=== PATIENT | male | born 1980 | race Caucasian/White ===

== ENCOUNTER 2016-05-30 11:48 | Emergency (ER) | payer MEDICARE, OTHER ==
[~2016-05-30] VITALS: Ht 167.6 cm; Wt 83.1 kg
[~2016-05-30 11:48] MED LIST: ALBU1.25 NEB; DEPA500T3 PO; TIMO5SOL EACH EYE
[2016-05-30 11:54] VITALS: BP 143/111; PULSE 95; RESP 20; TEMP 98.4; O2SAT 96
[2016-05-30 12:12] VITALS: BP 156/104; PULSE 89; RESP 18; O2SAT 96
[2016-05-30] MEDS ORDERED: IBUPROFEN 600 MG TAB PO ONE (12:15)
[2016-05-30] MEDS ORDERED: FLUT1INH INH (12:16)
[2016-05-30 12:28] LABS: AUTOMATED NEUTROPHIL # 5.5 TH/MM3 (1.8-7.7); BASOPHIL # 0.1 TH/MM3 (0-0.2); BASOPHIL % 0.9 % (0.0-2.0); EOSINOPHIL # 0.2 TH/MM3 (0-0.4); EOSINOPHIL % 1.6 % (0.0-4.0); HEMATOCRIT 48.1 % (39.0-51.0); HEMO FLAGS DIFF FINAL; LYMPH % 36.8 % (9.0-44.0); LYMPHOCYTE # 3.7 TH/MM3 (1.0-4.8); MEAN CELL VOLUME 87.4 FL (80.0-100.0); MEAN CORPUSCULAR HEMOGLOBIN 29.4 PG (27.0-34.0); MEAN CORPUSCULAR HGB CONC 33.6 % (32.0-36.0); MONO % 5.4 % (0.0-8.0); NEUT % 55.3 % (16.0-70.0); PLATELET COUNT 207 TH/MM3 (150-450); RED CELL DISTRIBUTION WIDTH 12.7 % (11.6-17.2)
[2016-05-30 12:41] LABS: CHLORIDE 104 MEQ/L (98-107); POTASSIUM 3.6 MEQ/L (3.5-5.1); SODIUM (NA) 144 MEQ/L (136-145)
[2016-05-30 12:45] LABS: ANION GAP 11 MEQ/L (5-15); BICARBONATE 28.8 MEQ/L (21.0-32.0)
[2016-05-30 12:46] LABS: BLOOD UREA NITROGEN 12 MG/DL (7-18)
--- NOTE | 2016-05-30 12:47 | RADHPO ---
EXAM DATE/TIME: 05/30/2016 12:29 [facility] COMPARISON: CHEST SINGLE AP, February 26, 2016, 16:44. INDICATIONS : Chest pain. MEDICAL HISTORY : Asthma. SURGICAL HISTORY : Hernia repair. ENCOUNTER: Initial ACUITY: 1 day PAIN SCORE: 5/10 LOCATION: chest FINDINGS: A single view of the chest demonstrates the lungs to be symmetrically aerated without evidence of mas s, infiltrate or effusion. The cardiomediastinal contours are unremarkable. Osseous structures are intact. CONCLUSION: No acute disease. Gavin Arguelles MD on May 30, 2016 at 12:45 Board Certified Radiologist. This report was verified electronically.
[2016-05-30 12:49] LABS: GLOMERULAR FILTRATION RATE 76 ML/MIN (>89)
--- NOTE | 2016-05-30 12:59 | PD ---
HPI Chief Complaint: Chest Pain Time Seen by Provider: 12:13 Travel History International Travel<30 days: No Contact w/Intl Traveler<30days: No Traveled to known affect area: No History of Present Illness HPI This 35-year-old male is complaining of right-sided chest pain. The pain is having is sharp and aggravated by breathing. He has had a cold for a couple of days. He is visually impaired and developmentally delayed. He does not smoke cigarettes. He has not been complaining of shortness of breath. He is able to point with one finger at the site of the pain. 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) Psychiatric: No Respiratory: Yes (ASTHMA) Immunizations Current: Yes Seizures: Yes (TAKES DEPAKOTE) Thyroid Disease: No Influenza Vaccination: Yes Past Surgical History Abdominal Surgery: Yes (HERNIA) Eye Surgery: Yes ("LESS THAN ONE YEAR OLD AND ONE YEAR OLD") Other Surgery: Yes (HERNIA REPAIR) Social History Alcohol Use: No Tobacco Use: No Substance Use: No Allergies-Medications (Allergen,Severity, Reaction): Coded Allergies: No Known Allergies (Verified , 02/26/16) Reported Meds & Prescriptions Reported Meds & Active Scripts Active Reported Breo Ellipta Inh (Fluticasone/Vilanterol) 100-25 Mcg/Act Inh 1 Puff INH DAILY Use daily at the same time. Depakote ER (Divalproex Sodium) 500 Mg Pablo 500 Mg PO TID Review of Systems General / Constitutional: No: Fever, Chills Eyes: No: Diploplia HENT: Positive: Sore Throat, Rhinitis Cardiovascular: Positive: Chest Pain or Discomfort Respiratory: Positive: Cough, No: Shortness of Breath, Wheezing Gastrointestinal: No: Vomiting, Diarrhea Musculoskeletal: No: Myalgias, Arthralgias Skin: No Rash, No Itching Neurologic: No: Weakness, Dizziness Hematologic/Lymphatic: No: Easy Bruising Physical Exam Narrative GENERAL: Well-developed male SKIN: Warm and dry. HEAD: Atraumatic. Normocephalic. EYES: There are bilateral corneal opacities ENT: No nasal bleeding or discharge. Mucous membranes pink and moist. NECK: Trachea midline. No JVD. CARDIOVASCULAR: Regular rate and rhythm. No murmur appreciated. RESPIRATORY: No accessory muscle use. Clear to auscultation. Breath sounds equal bilaterally. GASTROINTESTINAL: Abdomen soft, non-tender, nondistended. Hepatic and splenic margins not palpable. MUSCULOSKELETAL: No obvious deformities. No clubbing. No cyanosis. No edema. NEUROLOGICAL: Awake and alert. No obvious cranial nerve deficits. Motor grossly within normal limits. Normal speech. PSYCHIATRIC: Appropriate mood and affect; insight and judgment normal. Data Data Last Documented VS Vital Signs Date Time Temp Pulse Resp B/P Pulse Ox O2 Delivery O2 Flow Rate FiO2 05/30/16 12:12 96 Room Air 05/30/16 12:12 89 18 156/104 05/30/16 11:54 98.4 Orders Electrocardiogram (05/30/16 12:13) Complete Blood Count With Diff (05/30/16 12:13) Basic Metabolic Panel (Bmp) (05/30/16 12:13) Troponin I (05/30/16 12:13) Influenzae A/B Antigen (05/30/16 12:13) Chest, Single Ap (05/30/16 12:13) Ibuprofen (Motrin) (05/30/16 12:15) Labs Laboratory Tests Test 05/30/16 12:20 White Blood Count 10.0 TH/MM3 Red Blood Count 5.50 MIL/MM3 Hemoglobin 16.2 GM/DL Hematocrit 48.1 % Mean Corpuscular Volume 87.4 FL Mean Corpuscular Hemoglobin 29.4 PG Mean Corpuscular Hemoglobin 33.6 % Concent Red Cell Distribution Width 12.7 % Platelet Count 207 TH/MM3 Mean Platelet Volume 7.8 FL Neutrophils (%) (Auto) 55.3 % Lymphocytes (%) (Auto) 36.8 % Monocytes (%) (Auto) 5.4 % Eosinophils (%) (Auto) 1.6 % Basophils (%) (Auto) 0.9 % Neutrophils # (Auto) 5.5 TH/MM3 Lymphocytes # (Auto) 3.7 TH/MM3 Monocytes # (Auto) 0.5 TH/MM3 Eosinophils # (Auto) 0.2 TH/MM3 Basophils # (Auto) 0.1 TH/MM3 CBC Comment DIFF FINAL Differential Comment Sodium Level 144 MEQ/L Potassium Level 3.6 MEQ/L Chloride Level 104 MEQ/L Carbon Dioxide Level 28.8 MEQ/L Anion Gap 11 MEQ/L Blood Urea Nitrogen 12 MG/DL Creatinine 1.10 MG/DL Estimat Glomerular Filtration 76 ML/MIN Rate Random Glucose 113 MG/DL Calcium Level 9.7 MG/DL Troponin I LESS THAN 0.02 NG/ML MDM Medical Decision Making Medical Screen Exam Complete: Yes Emergency Medical Condition: Yes Medical Record Reviewed: Yes Differential Diagnosis Differential includes pleurisy, bronchitis, URI Narrative Course EKG shows normal sinus rhythm. Troponin is normal. Is not suggestive of cardiac chest pain in that it is pleuritic in located on the right side of the chest. He is having a upper respiratory infection and I believe is secondary to his upper respiratory infection. His flu test is negative Diagnosis Primary Impression: Upper respiratory infection Qualified Code: J06.9 - Upper respiratory tract infection, unspecified type Additional Instructions: Take Tylenol or Motrin for pain Disposition: 01 DISCHARGE HOME Condition: Stable Hermelindo Penny MD May 30, 2016 12:59
[2016-05-30 13:29] VITALS: BP 138/74
--- NOTE | 2016-05-31 22:38 | EKG ---
Date Performed: 05/30/2016 Time Performed: 12:00:18 PTAGE: 35 years EKG: Sinus rhythm Normal ECG PREVIOUS TRACING : 02/26/2016 16.26 Compared to prior tracing no significant change DOCTOR: Rg Castro Interpretating Date/Time 05/31/2016 22:37:07
== END 2016-05-30 13:30 | disposition home or self-care (01) ==
LOC: PHED 11:48
DX: J06.9 Acute upper respiratory infection, unspecified (principal); R07.89 Other chest pain; H54.7 Unspecified visual loss; Z87.09 Personal history of other diseases of the respiratory system; Z86.69 Personal history of other diseases of the nervous system and sense organs
CPT/HCPCS: 71010; 80048; 84484; 85025; 87804; 93005

== ENCOUNTER 2017-05-26 11:28 | Emergency (ER) | payer MEDICARE, OTHER ==
[~2017-05-26] VITALS: Ht 170.2 cm; Wt 90.0 kg
[~2017-05-26 11:28] MED LIST changes: -ALBU1.25 NEB; +FLUT1INH INH; -TIMO5SOL EACH EYE
[2017-05-26 11:45] VITALS: BP 137/96; PULSE 88; RESP 16; TEMP 98.7; O2SAT 95
[2017-05-26] MEDS ORDERED: DEPA500T3 PO (12:01)
[2017-05-26] MEDS ORDERED: TIMO0.5S30 EACH EYE (12:01)
--- NOTE | 2017-05-26 13:08 | RADRPT ---
EXAM DATE/TIME: 05/26/2017 12:57 [facility] COMPARISON: CHEST SINGLE AP, May 30, 2016, 12:29. INDICATIONS : Cough. MEDICAL HISTORY : None. SURGICAL HISTORY : None. ENCOUNTER: Initial ACUITY: 3 days PAIN SCORE: 5/10 LOCATION: Right chest FINDINGS: A single view of the chest demonstrates the lungs to be symmetrically aerated without evidence of mas s, infiltrate or effusion. The cardiomediastinal contours are unremarkable. Osseous structures are intact. CONCLUSION: Normal examination for a patient of this age. No significant change has occurred. Benny Guerra MD on May 26, 2017 at 13:06 Board Certified Radiologist. This report was verified electronically.
[2017-05-26] MEDS ORDERED: PRED20 PO (13:24)
--- NOTE | 2017-05-26 13:25 | PD ---
HPI Chief Complaint: Cold / Flu Symptoms Time Seen by Provider: 12:25 Travel History International Travel<30 days: No Contact w/Intl Traveler<30days: No Traveled to known affect area: No History of Present Illness HPI This Is a 36-year-old male here for evaluation of cough 3 days. He is reporting some mild chest discomfort with coughing. No fever or chills. Symptom severity is mild to moderate. No aggravating or alleviating factors. 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) Psychiatric: No Respiratory: Yes (ASTHMA) Immunizations Current: Yes Seizures: Yes (TAKES DEPAKOTE) Thyroid Disease: No Tetanus Vaccination: > 5 Years Influenza Vaccination: Yes Past Surgical History Abdominal Surgery: Yes (HERNIA) Eye Surgery: Yes ("LESS THAN ONE YEAR OLD AND ONE YEAR OLD") Other Surgery: Yes (HERNIA REPAIR) Social History Alcohol Use: No Tobacco Use: No Substance Use: No Allergies-Medications (Allergen,Severity, Reaction): Coded Allergies: No Known Allergies (Verified Adverse Reaction, Unknown, 05/26/17) Reported Meds & Prescriptions Reported Meds & Active Scripts Active Reported Timolol Opth Drops 0.5 % Soln 1 Drop EACH EYE HS Depakote ER (Divalproex Sodium) 500 Mg Pablo 500 Mg PO HS Breo Ellipta Inh (Fluticasone/Vilanterol) 100-25 Mcg/Act Inh 1 Puff INH DAILY Use daily at the same time. Depakote ER (Divalproex Sodium) 500 Mg Pablo 1,000 Mg PO DAILY Review of Systems Except as stated in HPI: all other systems reviewed are Neg Physical Exam Narrative GENERAL: Alert and well-appearing 36-year-old male SKIN: Warm and dry. HEAD: Normocephalic. Ears/nose/throat: No TM erythema. Clear nasal discharge. No pharyngeal erythema. No tonsillar hypertrophy or exudate. NECK: Supple CARDIOVASCULAR: Regular rate and rhythm without murmurs, gallops, or rubs. RESPIRATORY: Breath sounds equal bilaterally. No accessory muscle use. Mild expiratory wheeze which clears with cough. GASTROINTESTINAL: Abdomen soft, non-tender, nondistended. MUSCULOSKELETAL: No cyanosis, or edema. BACK: Nontender without obvious deformity. No CVA tenderness. Data Data Last Documented VS Vital Signs Date Time Temp Pulse Resp B/P (MAP) Pulse Ox O2 Delivery O2 Flow Rate FiO2 05/26/17 11:45 98.7 88 16 137/96 (110) 95 Orders Orders Chest, Single Ap (05/26/17 ) MDM Medical Decision Making Medical Screen Exam Complete: Yes Emergency Medical Condition: Yes Differential Diagnosis Bronchitis, pneumonia, influenza, reactive airway Narrative Course 36-year-old male here with cough 3 days. He is nontoxic appearing. His vital signs are stable. He does have a slight expiratory wheeze which clears with cough. Chest x-ray is negative for pneumonia. I believe this is a viral bronchitis. He'll be treated with a short dose of steroids and instructed to use his albuterol inhaler. Follow up with his primary doctor or return he has new or worsening symptoms. Diagnosis Primary Impression: Viral bronchitis Referrals: Primary Care Physician Additional Instructions: Medication as directed. Use albuterol inhaler as directed. Rest and stay well hydrated. Follow-up with her primary doctor. Return if he developed new or worsening symptoms. Scripts Prednisone (Prednisone) 20 Mg Tab 40 MG PO DAILY, #8 TAB 0 Refills Take 40 mg (2 tablets) daily for 5 days Prov: Lauren Yadav 05/26/17 Disposition: 01 DISCHARGE HOME Condition: Stable Lauren Yadav May 26, 2017 13:25
== END 2017-05-26 13:32 | disposition home or self-care (01) ==
LOC: PHEFT 11:28
DX: J45.909 Unspecified asthma, uncomplicated (principal); J20.8 Acute bronchitis due to other specified organisms
CPT/HCPCS: 71045; 99283